=== PATIENT | male | born 1945 | race Caucasian/White ===

== ENCOUNTER 2021-04-22 19:58 | Inpatient (IN) ==
[2021-04-22] MEDS ORDERED: ONDANSETRON 4 MG/2 ML VIAL IV STA (20:34)
[2021-04-22] MEDS ORDERED: SODIUM CHLORIDE 0.9% 500 ML IV STA (20:34)
[2021-04-22 21:38] LABS: Basophils % 0.2 % (0.0-0.8); Eosinophils # 0.1 10*3/uL (0.0-0.87); Eosinophils % 1.1 % (0.00-10.9); Hematocrit 34.4 VOL% (42.0-52.0); Hemoglobin 11.1 GM/DL (14.0-18.0); Immature Granulocytes % 0.6 %; Immature Granulocytes Absolute 0.06 #; Lymphocytes # 0.8 10*3/uL (1.4-4.0); Lymphocytes % 8.3 % (21.2-54.2); Mean Corpuscular HGB Conc 32.3 GM/DL (32-36); Mean Corpuscular Volume 86.4 FL (87-102); Mean Platelet Volume 9.5 FL (9.6-12.0); Neutrophils % 77.8 % (38.7-73.9); Platelet Count 257 T/CUMM (130-400); Red Blood Count 3.98 MC/CUMM (3.8-5.5); Red Cell Distribution Width 14.3 % (9.3-17.3); White Blood Count 9.8 T/CUMM (4-12)
[2021-04-22 21:43] LABS: Bacteria,Urine Occasional /HPF (Few); Bilirubin,Urine Negative (Negative); Blood, Urine Small mg/dL (Negative); Glucose,Urine (UA) Negative (Negative); Ketones,Urine Negative (Negative); Mucus,Urine Occasional /LPF (Occasional); Nitrite,Urine Negative (Negative); Protein,Urine Negative; RBC,Urine 1 /HPF (0-4); Urine Appearance CLEAR (Clear); Urine Color Yellow (Yellow); Urine Specific Gravity 1.011 (1.001-1.035); Urine Urobilinogen < 2.0 EU/DL (0.2-1.0)
[2021-04-22 22:01] LABS: Bilirubin,Total 1.3 MG/DL (0.20-1.00); Calcium 8.3 MG/DL (8.5-10.1); Osmolality,Calculated 281.4 MOS/KG (273-304); Potassium 4.1 MMOL/L (3.5-5.1); Total Protein 7.1 G/DL (6.4-8.2)
[2021-04-22] MEDS ORDERED: ONDANSETRON 4 MG/2 ML VIAL IV PRN (22:15)
[2021-04-22] MEDS ORDERED: DEXTROSE 50% 25 GM/50 ML VIAL IV PRN (22:15)
[2021-04-22] MEDS ORDERED: hydrALAZINE 20 MG/1 ML VIAL IV PRN (22:15)
[2021-04-22] MEDS ORDERED: GLUCAGON 1 MG VIAL IM PRN (22:15)
[2021-04-22] MEDS ORDERED: cefTRIAXone 1,000 MG in SYRINGE 1 EACH IV SCH (23:00)
[2021-04-23 04:04] LABS: Basophils % 0.2 % (0.0-0.8); Eosinophils # 0.2 10*3/uL (0.0-0.87); Eosinophils % 1.8 % (0.00-10.9); Hematocrit 32.5 VOL% (42.0-52.0); Hemoglobin 10.7 GM/DL (14.0-18.0); Immature Granulocytes % 0.4 %; Immature Granulocytes Absolute 0.04 #; Lymphocytes # 1.1 10*3/uL (1.4-4.0); Lymphocytes % 12.3 % (21.2-54.2); Mean Corpuscular HGB Conc 32.9 GM/DL (32-36); Mean Corpuscular Volume 86.9 FL (87-102); Mean Platelet Volume 9.3 FL (9.6-12.0); Monocytes % 14.3 % (1.7-12.7); Platelet Count 253 T/CUMM (130-400); Red Blood Count 3.74 MC/CUMM (3.8-5.5); Red Cell Distribution Width 14.2 % (9.3-17.3)
[2021-04-23 04:28] LABS: Calcium 8.4 MG/DL (8.5-10.1); Osmolality,Calculated 280.5 MOS/KG (273-304); Potassium 3.8 MMOL/L (3.5-5.1)
[2021-04-23 07:48] LABS: Basophils % 0.2 % (0.0-0.8); Eosinophils # 0.2 10*3/uL (0.0-0.87); Hematocrit 33.4 VOL% (42.0-52.0); Hemoglobin 10.7 GM/DL (14.0-18.0); Immature Granulocytes % 0.3 %; Immature Granulocytes Absolute 0.03 #; Lymphocytes # 1.1 10*3/uL (1.4-4.0); Mean Corpuscular Volume 86.8 FL (87-102); Mean Platelet Volume 9.1 FL (9.6-12.0); Monocytes % 14.4 % (1.7-12.7); Neutrophils % 70.1 % (38.7-73.9); Platelet Count 256 T/CUMM (130-400); Red Blood Count 3.85 MC/CUMM (3.8-5.5); Red Cell Distribution Width 14.3 % (9.3-17.3); White Blood Count 8.6 T/CUMM (4-12)
[2021-04-23 08:12] LABS: Calcium 8.6 MG/DL (8.5-10.1); Osmolality,Calculated 280.5 MOS/KG (273-304)
[2021-04-23] MEDS: INSULIN LISPRO 100 UNIT/ML SUBCUT SCH ×2 (08:18→17:31)
[2021-04-23] MEDS: amLODIPine 10 MG TABLET PO SCH (09:02)
[2021-04-23] MEDS: ROSUVASTATIN 20 MG TABLET PO SCH (09:02)
[2021-04-23] MEDS: carvediloL 6.25 MG TABLET PO SCH ×2 (09:02→21:48)
[2021-04-23] MEDS ORDERED: INFLUENZA VIRUS VACCINE 0.5 ML SYRINGE IM ONE (10:29)
[2021-04-23] MEDS ORDERED: LACTATED RINGERS 1,000 ML IV SCH (11:00)
[2021-04-23] MEDS ORDERED: fentaNYL 100 MCG/2 ML VIAL ONE (11:05)
[2021-04-23] MEDS ORDERED: ETOMIDATE 40 MG/20 ML VIAL IV ONE (11:25)
[2021-04-23] MEDS ORDERED: LIDOCAINE 2% 5 ML VIAL ONE (11:25)
[2021-04-23] MEDS ORDERED: SEVOFLURANE 1 UNIT/15 MINUTE INH ONE (11:25)
[2021-04-23] MEDS ORDERED: propofoL 200 MG/20 ML VIAL IV ONE (11:25)
[2021-04-23] MEDS ORDERED: ONDANSETRON 4 MG/2 ML VIAL ONE (11:26)
[2021-04-23] MEDS ORDERED: ePHEDrine 50 MG/ML VIAL ONE (11:32)
[2021-04-23] MEDS ORDERED: DOCUSATE/SENNA 50-8.6 MG TABLET PO SCH (21:00)
[2021-04-23] MEDS ORDERED: cefTRIAXone 1,000 MG in SODIUM CHLORIDE 0.9% 100 ML IV SCH (21:00)
[2021-04-24 06:32] LABS: Basophils % 0.4 % (0.0-0.8); Eosinophils # 0.2 10*3/uL (0.0-0.87); Eosinophils % 2.3 % (0.00-10.9); Hematocrit 32.6 VOL% (42.0-52.0); Hemoglobin 10.2 GM/DL (14.0-18.0); Immature Granulocytes % 0.3 %; Immature Granulocytes Absolute 0.02 #; Lymphocytes # 1.2 10*3/uL (1.4-4.0); Lymphocytes % 16.5 % (21.2-54.2); Mean Corpuscular HGB Conc 31.3 GM/DL (32-36); Mean Corpuscular Volume 90.8 FL (87-102); Mean Platelet Volume 9.6 FL (9.6-12.0); Neutrophils % 68.5 % (38.7-73.9); Platelet Count 263 T/CUMM (130-400); Red Blood Count 3.59 MC/CUMM (3.8-5.5); Red Cell Distribution Width 14.3 % (9.3-17.3); White Blood Count 7.1 T/CUMM (4-12)
[2021-04-24 07:06] LABS: Calcium 8.6 MG/DL (8.5-10.1); Osmolality,Calculated 282.2 MOS/KG (273-304); Potassium 4.6 MMOL/L (3.5-5.1)
[2021-04-24] MEDS: amLODIPine 10 MG TABLET PO SCH ×2 (07:50→08:32)
[2021-04-24] MEDS: ROSUVASTATIN 20 MG TABLET PO SCH ×2 (07:50→08:32)
[2021-04-24] MEDS: carvediloL 6.25 MG TABLET PO SCH ×2 (07:50→08:32)
[2021-04-24] MEDS: INSULIN LISPRO 100 UNIT/ML SUBCUT SCH (07:53)
[2021-04-24 07:56] VITALS: BP 134/72
[2021-04-26 22:46] LABS: Stone Analysis Interpretation SEE COMMENTS
== END 2021-04-24 11:59 | disposition home or self-care (01) | DRG 660 ==
LOC: N.ED 19:58 → N.EDINP 22:15 → SUATTDRO 22:15 → N.5E 04-23 09:35
PROVIDERS: ADMIT Internal Medicine; ATTEND Internal Medicine Geriatric Medicine